=== PATIENT | female | born 1965 | race Caucasian/White ===

== ENCOUNTER 2018-01-27 08:26 | Day surgery (SDC) | payer MEDICARE ==
[2018-01-26 08:50] VITALS: BMI 33.6
[2018-01-27 11:29] VITALS: TEMP 98.7
[2018-01-27 12:57] VITALS: BP 128/85; PULSE 86
== END 2018-01-27 12:10 | disposition home or self-care (01) ==
LOC: JASU-ENDO 08:26
PROVIDERS: ATTEND Internal Medicine Gastroenterology
PROC: 0DJD8ZZ Inspection of Lower Intestinal Tract, Via Natural or Artificial Opening Endoscopic (ICD-10-PCS; principal; 2018-01-27 10:45)
DX: Z12.11 Encounter for screening for malignant neoplasm of colon (principal); K64.8 Other hemorrhoids; K57.30 Diverticulosis of large intestine without perforation or abscess without bleeding
CPT/HCPCS: 84703

== ENCOUNTER → 2018-02-19 | Day surgery (SDC) | payer MEDICARE ==
--- NOTE | 2018-02-20 15:56 | PATH ---
Surgical Pathology Report Patient Name: LAURA JUSTIN [facility]. Rec. #: [id number] /Age/Gender: 1965 (Age: 52) / F Account: [id number] Location: [facility] Taken: 02/19/2018 Received: 02/19/2018 Reported: 02/20/2018 Physicians: Fortino Reid M.D. Specimen(s) Received A: RIGHT BREAST SPECIMEN SITE 1 WITH DENSITY B: RIGHT BREAST SPECIMEN SITE 2 WITH CALCIFICATIONS C: RIGHT BREAST SPECIMEN WITHOUT CALCIFICATIONS Clinical History Nonpalpable lesion, highly suspicious Mammographic findings: Microcalcification, suspicious Final Diagnosis A. RIGHT BREAST SPECIMEN, SITE 1, WITH DENSITY, STEREOTACTIC BIOPSY: INVASIVE DUCTAL CARCINOMA, WELL DIFFERENTIATED, MEASURES UP TO 0.9 CM IN LENGTH MEASURED ON THIS SLIDE. DUCTAL CARCINOMA IN SITU (DCIS), LOW NUCLEAR GRADE, CRIBRIFORM TYPE. LOBULAR CARCINOMA IN SITU (LCIS), CLASSICAL TYPE. Results of estrogen receptor (ER) and progesterone receptor (DC) studies for invasive carcinoma performed on block "A1" at [facility] are as follows: ER (clone [id number] mouse monoclonal antibody by [employer]): 100% nuclear staining with strong intensity (Positive). DC (clone16 mouse monoclonal antibody by [employer]): 100% nuclear staining with strong intensity (Positive). Positive and negative controls (internal if applicable) show appropriate results. Formalin fixation and cold ischemic times are within current ASCO/CAP recommendations for ER, DC and Her2 testing. Reports for Her 2 and Ki-67 to follow. B. RIGHT BREAST SPECIMEN, SITE 2, WITH CALCIFICATIONS, STEREOTACTIC BIOPSY: LOBULAR CARCINOMA IN SITU (LCIS), CLASSICAL TYPE. USUAL DUCTAL HYPERPLASIA AND COLUMNAR CELL CHANGE NOTED. MICROCALCIFICATIONS PRESENT IN LCIS AND BENIGN BREAST TISSUE. Results of estrogen receptor (ER) and progesterone receptor (DC) studies performed on block "B1" at [facility] are as follows: ER (clone [id number] mouse monoclonal antibody by [employer]): 100% nuclear staining with strong intensity (Positive). DC (clone16 mouse monoclonal antibody by Leica): 100% nuclear staining with strong intensity (Positive). C. RIGHT BREAST SPECIMEN, SITE 2, WITHOUT CALCIFICATIONS, STEREOTACTIC BIOPSY: LOBULAR CARCINOMA IN SITU (LCIS), CLASSICAL TYPE. USUAL DUCTAL HYPERPLASIA AND COLUMNAR CELL CHANGE NOTED. MICROCALCIFICATIONS PRESENT IN LCIS AND BENIGN BREAST TISSUE. Comment: Immunohistochemical stains performed and interpreted at [facility] show the following results: smooth muscle myosin heavy chain and p63 (done on block A1) show loss of the myoepithelial cell layer in the areas of invasive carcinoma. E-cadherin (done on blocks A1, B1, and C1) highlights the tumor cells in the ductal carcinoma component, while is negative in the lobular carcinoma in situ. Electronically Signed Светлана Mackay M.D. Addendum Reported: 02/23/2018 Addendum Diagnosis Results of Her2 (IHC) & Ki-67 studies performed on block "A1 " at [place], [place] ([id number]) are as follows: Her2 IHC (EP3 from [employer], formerly known as [id number], using [employer] Polymer Refine detection kit): 0 (Negative). Ki-67: ~10% (Low proliferative index). Positive and negative controls (internal if applicable) show appropriate results. Seda Polo M.D. Gross Description A. Received in formalin labeled "right breast with density site 1," are 8 adkins-yellow, cylindrical portions of fibroadipose tissue ranging from 1.0-3.2 cm in length and averaging 0.3 cm in diameter. The specimens are submitted in toto in 2 cassettes. B. Received in formalin labeled "right breast with calcifications site 2," are 3 adkins-yellow, cylindrical portions of fibroadipose tissue ranging from 2.7-3.3 cm in length and averaging 0.3 cm in diameter. The specimens are submitted in toto in one cassette. C. Received in formalin labeled "right breast without calcifications," are 4 adkins-yellow, cylindrical portions of fibroadipose tissue ranging from 1.5-3.1 cm in length and averaging 0.3 cm in diameter. The specimens are submitted in toto in one cassette. Time to formalin fixation: 5 minutes Total formalin fixation time: Approximately 6 hours. 02/19/2018 saudi02/19/2018
== END | disposition home or self-care (01) ==
LOC: FMAMMOTONE 09:55
PROVIDERS: ATTEND Physician Assistant
PROC: 0HBT3ZX Excision of Right Breast, Percutaneous Approach, Diagnostic (ICD-10-PCS; principal; 2018-02-19)
DX: C50.811 Malignant neoplasm of overlapping sites of right female breast (principal); Z17.0 Estrogen receptor positive status [ER+]; D05.01 Lobular carcinoma in situ of right breast; D05.11 Intraductal carcinoma in situ of right breast; R92.1 Mammographic calcification found on diagnostic imaging of breast
CPT/HCPCS: 19081; 19082; 87899; 88305-TC; A4648

== ENCOUNTER → 2018-03-13 | Day surgery (SDC) | payer MEDICARE ==
--- NOTE | 2018-03-16 14:07 | PATH ---
Surgical Pathology Report Patient Name: LAURA JUSTIN [facility]. Rec. #: [id number] /Age/Gender: 1965 (Age: 52) / F Account: [id number] Location: [facility] RADIOLOGY U Taken: 03/13/2018 Received: 03/13/2018 Reported: 03/16/2018 Physicians: Babatunde Rodriguez M.D. Specimen(s) Received RIGHT AXILLA CORE BIOPSY Clinical History Ultrasound findings: Suspicious Newly diagnosed right breast cancer, suspicious right axillary lymph node Final Diagnosis AXILLA, RIGHT, CORE BIOPSY: BENIGN LYMPH NODE TISSUE. NO EVIDENCE OF METASTATIC CARCINOMA. (SEE NOTE) Note: Cytokeratin (AE1/3) immunostain (performed [facility]) is negative. This finding supports the diagnosis. Electronically Signed Laura Smith M.D. Gross Description Received in formalin labeled "right axilla biopsy," is a 2.0 x 1.6 x 0.2 cm aggregate of adkins-yellow, irregular to cylindrical portions of fibroadipose tissue. The formalin is filtered and the specimen is entirely submitted in one cassette. Time to formalin fixation: 2 minutes Total formalin fixation time: Approximately 7 hours. 03/13/201803/13/2018
== END | disposition home or self-care (01) ==
LOC: FRADUS-SUR 09:47
PROVIDERS: ATTEND Surgery Surgical Oncology
PROC: 07B53ZX Excision of Right Axillary Lymphatic, Percutaneous Approach, Diagnostic (ICD-10-PCS; principal; 2018-03-13)
PROC: BH47ZZZ Ultrasonography of Upper Extremity (ICD-10-PCS; 2018-03-13)
DX: C50.911 Malignant neoplasm of unspecified site of right female breast (principal); R59.9 Enlarged lymph nodes, unspecified
CPT/HCPCS: 19083; 87899; 88305-TC; 88342-TC; A4648

== ENCOUNTER 2018-04-14 06:28 | Day surgery (SDC) | payer MEDICARE ==
[2018-04-06 12:14] VITALS: BMI 32.9
--- NOTE | 2018-04-10 11:01 | HP ---
Admitting History and Physical - Primary Care Physician PCP: Cinthya Santa - Admission Chief Complaint: right breast cancer History of Present Illness: 52 year old postmenapausal female with mammogram 12/2017 showing focal mass right breast @ 11:00 diagnostics follow up mammogram and US showed spiculated mass right breast 12:00 measuring 6mm 5 to6 cm FN. as well as extensive calcifications extending retroareolar region at 12:00. Birad 4. Stereotactic core x2 areas showed sire one invasive lobular carcinoma and DCIS ER+/CT+/HER2 - . Site 2 LCIS . MRI showed newly diagnosed right breast cancer and suspicious right axillary node which was biopsied and negative . BRCA 2 VUS. History Source: Patient - Past Medical History Cardiovascular: Yes: Hyperlipdemia ...LMP: 07/03/17 Psych: Yes: Bipolar, Depression - Past Surgical History Past Surgical History: Yes: Appendectomy Additional Past Surgical History: eye surgery child - Smoking History Smoking history: Never smoked Have you smoked in the past 12 months: No - Alcohol/Substance Use Hx Alcohol Use: No - Social History ADL: Independent History of Recent Travel: No Home Medications - Allergies Allergies/Adverse Reactions: Allergies Allergy/AdvReac Type Severity Reaction Status Date / Time No Known Allergies Allergy Verified 03/05/15 09:59 - Home Medications Home Medications: Ambulatory Orders Clozapine 100 mg PO TID 03/05/15 Ergocalciferol (Vitamin D2) [Vitamin D2] 50,000 unit PO ASDIR 01/26/18 Simvastatin 40 mg PO HS 01/27/18 Family Disease History - Family Disease History Other Family History: mat aunts x 2 breast ca one at age 67, ? age. mat cousin breast ca 50 Physical Examination Constitutional: Yes: No Distress Breast(s): Yes: Other (Right breast thickening right 12:00 due to post bx changes no palpable axillary node.) Problem List - Problems (1) Breast cancer, right breast Code(s): C50.911 - MALIGNANT NEOPLASM OF UNSP SITE OF RIGHT FEMALE BREAST Qualifiers: Breast location: overlapping sites of breast Estrogen receptor status: positive Patient sex: female Qualified Code(s): C50.811 - Malignant neoplasm of overlapping sites of right female breast; Z17.0 - Estrogen receptor positive status [ER+] Assessment/Plan Right breast wide excision, right sentenel node biopsy , possible axillary node dissection,right mammogram needle localization , right lymphoscintogram, bilateral reduction mastopexy with Vázquez
[2018-04-14] MEDS ORDERED: LIDOCAINE 1%/EPI 1:100000 (20 ML MULTI DOSE VIAL) ONE (11:13)
[2018-04-14] MEDS ORDERED: BUPIVACAINE HCL/PF 2.5 MG/ML - 30 ML VIAL IJ ONE (11:13)
[2018-04-14] MEDS ORDERED: ISOSULFAN BLUE 10 MG/ML VIAL SQ ONE (11:14)
[2018-04-14] MEDS ORDERED: KETOROLAC TROMETHAMINE 30 MG/1 ML VIAL IVPUSH PRN (14:30)
[2018-04-14] MEDS ORDERED: DEXTROSE 5%-0.45% SALINE 1,000 ML IV SCH ×2 (14:30→19:10)
[2018-04-14] MEDS ORDERED: ONDANSETRON 4 MG/2 ML VIAL IVPUSH PRN (14:30)
[2018-04-14] MEDS ORDERED: oxyCODONE HCL 5 MG TABLET PO PRN ×2 (15:19→17:26)
[2018-04-14] MEDS ORDERED: LACTATED RINGERS SOLUTION 1,000 ML IV SCH (15:30)
--- NOTE | 2018-04-14 17:39 | OP ---
Operative Note - Note: Operative Date: 04/14/18 Pre-Operative Diagnosis: right breast cancer Operation: right breast recnostruction wtih left breast reduction Post-Operative Diagnosis: Same as Pre-op Surgeon: Lupillo Vázquez Dog Walker: Francesca Owens Anesthesia: General Drains & Tubes with Location: KIKE x 2 breasts Operative Report Dictated: Yes
[2018-04-14] MEDS ORDERED: ONDANSETRON 4 MG/2 ML VIAL ONE (18:17)
--- NOTE | 2018-04-14 18:34 | OP ---
DATE OF OPERATION: 04/14/2018 PROCEDURE: Right-sided breast reconstruction of partial mastectomy defect using parenchymal rearrangement inferior pedicle flap reconstruction and left-sided balancing breast reduction. A 4-cm complex right axillary wound closure. In combination with a right-sided partial mastectomy and sentinel lymph node biopsy performed by Dr. Cinthya Santa and his team, that portion of the procedure will be dictated separately by Dr. Santa and his team. ATTENDING SURGEON: Lupillo Vázquez MD ANESTHESIA: General endotracheal anesthesia. DECONTAMINATOR: CLIVE Ritchie PREOPERATIVE DIAGNOSIS: Right-sided breast cancer, asymmetry of right-sided reconstructed breast. POSTOPERATIVE DIAGNOSIS: Right-sided breast cancer, asymmetry of right-sided reconstructed breast. DESCRIPTION OF PROCEDURE: The patient is marked in the holding area for an inverted T-rodriguez-type pattern reduction with a similar pattern for reconstruction on the right. Nipples are sighted at 22 cm from the sternal notch bilaterally. Patient is awake and aware of all incisions and resulting scars, understands, and agrees to proceed. Brought to the operating room. Sequential compression stockings and EVONNE hose were applied. Blair catheter was placed. She was prepped and draped in the standard surgical fashion after anesthesia was given. A timeout was called. The patient, procedure, site, and side were verified. At this point, while the right-sided partial mastectomy is being performed, the left-sided reduction is planned. An 8-cm width inferior pedicle is marked. The nipple was traced with a 42-mm cookie cutter and with the breast under tourniquet, the pedicle is deepithelialized with the exception of the nipple-areolar complex. Superior, medial, and lateral skin flaps are developed at 2 cm of thickness down to the level of the chest wall. Volume is removed between the skin flaps and the inferior pedicle. Hemostasis was meticulously achieved. The skin was tailor tacked and attention was then directed towards the right side after the completion of the partial mastectomy. The partial mastectomy defect is assessed. Clips are placed to outline the [place] defect, which is not significantly repositioned through the reconstruction. Hemostasis was meticulously achieved. It is determined that the resection did not compromise the inferior pedicle blood supply to the nipple areolar complex. Therefore, a pedicle was marked again with 8 cm of width and this was deepithelialized with the exception of the nipple areolar complex. A 42-mm cookie cutter was used to trace the nipple areola. The defect was then connected to skin flaps medially and laterally. The defect itself is the skin flap superiorly down to the chest wall. A minimal amount of breast tissue was removed; however, it is oriented as the inferomedial, inferolateral, and skin from the new anterior margin of the defect, which is at the 12 o'clock position from the nipple is removed. The inferior pedicle supporting the nipple areola is mobilized into the central mound of the breast and the skin is tailor tacked. The patient is brought to a seated-upright position where it is determined that the size, shape, and symmetry of the breasts are comparable. Size 10 flat KIKE drains were brought out through the lateral extent of the incision and secured with 3-0 silk drain sutures. The inverted T points were closed with a half-buried mattress 2-0 nylon suture. The nipples were pink and viable with good periareolar dermal bleeding. The closure was performed with a series of interrupted buried deep dermal 3-0 Monocryl suture along the vertical and horizontal limbs and a running subcuticular 3-0 Monocryl suture along the vertical and horizontal limbs. The nipple areola was inset with a series of interrupted buried deep dermal 3-0 Monocryl suture in the denton-hole pattern with a running subcuticular 4-0 Monocryl around the areolas. Attention was then directed towards the right axillary wound where the axillary fascia was closed with a series of interrupted 3-0 Monocryl suture. After hemostasis was achieved, the dermis was closed with a series of interrupted buried deep dermal 3-0 Monocryl suture followed by a running subcuticular 3-0 Monocryl suture. All incisions were dressed with half-inch Steri-Strips. ABD gauze and a surgical bra were applied. Patient was awoken from anesthesia, having tolerated the procedure well, transferred to the recovery room without complication. Babatunde [id number]
--- NOTE | 2018-04-14 18:49 | OP ---
DATE OF OPERATION: 04/14/2018 PREOPERATIVE DIAGNOSIS: Right breast cancer. POSTOPERATIVE DIAGNOSIS: Right breast cancer. PROCEDURE: Right breast wide excision with sentinel node biopsy. ANESTHESIA: General intubated. ATTENDING SURGEON: Satish Santa MD REGISTERED REPRESENTATIVE: CLIVE Amin ESTIMATED BLOOD LOSS: Minimal. COMPLICATIONS: None. PROCEDURE: Patient was made aware of the risks and benefits of the procedure and consented. She was placed in the supine position after going to the radiology suite where 4 needles and wires were placed next to the index lesions and surrounding calcifications. She was then brought to Nuclear Medicine where radioactive tracer was injected into her breast for lymphoscintigraphy. She then was placed in the supine position on the operating table. After general anesthesia was induced, the patient was intubated. Then, 3.0 mL of 1% isosulfan blue were locally infiltrated into the peritumoral tissues. The operative site was prepped and draped in the usual sterile fashion. Waiting approximately 10 minutes with gentle manual compression, curvilinear incision was made in the right axilla. With blunt and sharp dissection, tissues were dissected down to the axillary fat where cluster blue and hot lymph nodes were identified and surgically excised and submitted to Pathology. Irrigation of the rest of the axilla with palpation and with the needle probe found no other hot spots or suspicious areas. The right breast was then approached. A circumareolar incision was made superiorly using electrocautery. Thick skin flaps were made to each of the wires, which each of the needles. The needles were withdrawn through the puncture sites and the wires through the wound. Tissues around the wire were then sharply excised and submitted with a short suture superior and long suture lateral. Specimen radiograph confirmed the presence of the index lesion seen as 2 clips as well as adjacent calcifications. Interrogation of the rest of the wound revealed that there was some suspicious thickening inferior, so an additional sharply excised inferior segment was taken with a clip in the new inferior margin as well as deep and anterior segments were clipped at the new margin. The deep segment went all of the way down to the pectoralis muscle and anterior was against the subcutaneous fat. The procedure was then turned over to Dr. Lupillo Vázquez, who did a bilateral mastopexy reconstruction. He will dictate his portion of the procedure later. SATISH SANTA M.D. [id number]
[2018-04-14] MEDS ORDERED: METOCLOPRAMIDE HCL INJECTION 10 MG/2 ML VIAL ONE (19:04)
[2018-04-14] MEDS ORDERED: morphine CARPU-JECT 2 MG/1 ML DISP.SYRIN IVPUSH PRN (19:10)
[2018-04-14] MEDS ORDERED: PT OWN MED DRAWER 7, Y5N ONE (21:42)
[2018-04-14] MEDS ORDERED: CLOZAPINE 100 MG PO SCH (22:00)
[2018-04-15 06:21] VITALS: BP 100/59; PULSE 93; TEMP 98.9
--- NOTE | 2018-04-15 13:14 | PN ---
Progress Note, Physician Chief Complaint: Right breast cancer S/P right breast wide excision sentenel node biopsy and reduction mastopexy bilaterally POD #1 History of Present Illness: Patient is OOB pain minimal no medication taken ,ready for discharge today - Current Medication List Current Medications: Active Medications Dextrose/Sodium Chloride (D5-1/2ns -) 1,000 mls @ 75 mls/hr IV ASDIR [place] Ketorolac Tromethamine (Toradol Injection -) 30 mg IVPUSH ONCE PRN PRN Reason: PAIN Stop: 04/19/18 14:29 Morphine Sulfate (Morphine Injection -) 2 mg IVPUSH Q6H PRN PRN Reason: PAIN LEVEL 6-10 Non-Formulary Medication (Clozapine [Clozapine]) 100 mg PO TID A[place] Ondansetron HCl (Zofran Injection) 4 mg IVPUSH Q6H PRN PRN Reason: NAUSEA AND/OR VOMITING Last Admin: 04/14/18 18:20 Dose: 4 mg Oxycodone HCl (Roxicodone -) 5 mg PO Q4H PRN PRN Reason: PAIN LEVEL 1-5 - Objective Vital Signs: Vital Signs Temperature 98.9 F 04/15/18 06:18 Pulse Rate 93 H 04/15/18 06:18 Respiratory Rate 19 04/15/18 06:18 Blood Pressure 100/59 L 04/15/18 06:18 O2 Sat by Pulse Oximetry (%) 95 04/15/18 06:18 Constitutional: Yes: No Distress Breast(s): Yes: Other (Bilateral flaps viable incision intact KIKE drains fuctioning steristrips in place. dresing changed) Problem List - Problems (1) Breast cancer, right breast Code(s): C50.911 - MALIGNANT NEOPLASM OF UNSP SITE OF RIGHT FEMALE BREAST Qualifiers: Breast location: overlapping sites of breast Estrogen receptor status: positive Patient sex: female Qualified Code(s): C50.811 - Malignant neoplasm of overlapping sites of right female breast; Z17.0 - Estrogen receptor positive status [ER+] Assessment/Plan discharge home today KIKE drain training follow up next week with Dr goddard and Dr Vázquez cefadroxil BID for 10 days or until drains are dc'd tylenol or tramdol prn
--- NOTE | 2018-04-17 15:26 | PATH ---
Surgical Pathology Report Patient Name: LAURA JUSTIN [facility]. Rec. #: [id number] /Age/Gender: 1965 (Age: 53) / F Account: [id number] Location: [facility] Taken: 04/14/2018 Received: 04/14/2018 Reported: 04/17/2018 Physicians: Cinthya Santa M.D. Specimen(s) Received A: RIGHT AXILLARY SENTINEL NODE B: RIGHT BREAST WIDE EXCISION C: RIGHT BREAST INFERIOR SEGMENT D: RIGHT BREAST DEEP SEGMENT E: RIGHT BREAST ANTERIOR SEGMENT F: LEFT BREAST REDUCTION G: RIGHT BREAST ADDITIONAL ANTERIOR MARGIN H: RIGHT BREAST SKIN I: RIGHJT BREAST MEDIAL LATERAL J: RIGHT BREAST INFERIOR LATERAL K: LEFT BREAST TISSUE Clinical History Right breast CA Final Diagnosis A. LYMPH NODE, RIGHT AXILLARY SENTINEL, EXCISION: FIVE LYMPH NODES, NEGATIVE FOR METASTATIC CARCINOMA (0/5). Comment: One lymph node shows prior biopsy site changes. B. BREAST, RIGHT, WIDE EXCISION: INVASIVE DUCTAL CARCINOMA, WELL DIFFERENTIATED (TUBULE SCORE: 1/3, NUCLEAR GRADE: 2/3, MITOTIC SCORE: 1/3, TOTAL SCORE: 4/9; LIAN GRADE 1). INVASIVE CARCINOMA MEASURES 1.1 CM IN GREATEST DIMENSION, MICROSCOPICALLY. DUCTAL CARCINOMA IN SITU (DCIS), CRIBRIFORM TYPE WITH ASSOCIATED CALCIFICATIONS IS PRESENT ADMIXED WITH INVASIVE CARCINOMA. LOBULAR CARCINOMA IN SITU (LCIS) CLASSICAL TYPE, FLAT EPITHELIAL ATYPIA (FEA) AND COLUMNAR CELL CHANGE WITH ASSOCIATED CALCIFICATIONS. NO LYMPHOVASCULAR INVASION IS IDENTIFIED. PRIOR BIOPSY SITE CHANGES ARE PRESENT. PATHOLOGIC STAGE (pTNM): pT1c pN0. SEE ALSO INVASIVE CARCINOMA CASE SUMMARY BELOW. C. BREAST, RIGHT, INFERIOR SEGMENT, EXCISION: FEW FOCI OF LCIS, CLASSICAL TYPE. D. BREAST, RIGHT, DEEP SEGMENT, EXCISION: BENIGN FIBROADIPOSE TISSUE. E. BREAST, RIGHT, ANTERIOR SEGMENT, EXCISION: LCIS, CLASSICAL TYPE AND COLUMNAR CELL CHANGE WITH ASSOCIATED CALCIFICATIONS. F. BREAST, LEFT, REDUCTION: BENIGN BREAST TISSUE. SKIN WITH NO PATHOLOGIC FINDINGS. G. BREAST, RIGHT, ADDITIONAL ANTERIOR MARGIN, EXCISION: FEW FOCI OF LCIS, CLASSICAL TYPE. SKIN, WITH NO PATHOLOGIC FINDINGS. H. SKIN, RIGHT BREAST, EXCISION: SKIN WITH NO PATHOLOGIC FINDINGS. I. BREAST, RIGHT, MEDIAL LATERAL, EXCISION: SKIN AND UNDERLYING FIBROADIPOSE TISSUE WITH NO PATHOLOGIC FINDINGS. J. BREAST, RIGHT, INFERIOR LATERAL, EXCISION: BENIGN BREAST TISSUE. SKIN WITH NO PATHOLOGIC FINDINGS. K. BREAST TISSUE, LEFT, EXCISION: BREAST TISSUE SHOWING FOCAL ATYPICAL DUCTAL HYPERPLASIA (ADH) AND FIBROCYSTIC CHANGES. Comments Breast Invasive Carcinoma: Surgical Pathology Case Summary (Based on AJCC TNM 8 th edition) Procedure _X_ Excision (less than total mastectomy) Specimen Laterality _X_ Right Tumor Size _X_ Greatest dimension of largest invasive focus >1 mm (millimeters): 11 mm Histologic Type _X_ Invasive carcinoma of no special type (ductal, not otherwise specified) Histologic Grade (Lian Histologic Score) Glandular (Acinar)/Tubular Differentiation _X_ Score 1 (>75% of tumor area forming glandular/tubular structures) Nuclear Pleomorphism _X_ Score 2 Mitotic Rate _X_ Score 1 Overall Grade _X_ Grade 1 (scores of 3, 4, or 5) Tumor Focality _X_ Single focus of invasive carcinoma Ductal Carcinoma In Situ (DCIS) _X_ DCIS is present in specimen _X_ Negative for extensive intraductal component (EIC) Margins Invasive Carcinoma Margins _X_ Uninvolved by invasive carcinoma Distance from closest margin (millimeters): 10 mm from anterior margin in wide excision B; final anterior margins E&G are negative for carcinoma DCIS Margins _X_ Uninvolved by DCIS Distance from closest margin (millimeters): 11 mm from anterior margin in wide excision B; final anterior margins E&G are negative for DCIS Regional Lymph Nodes Number of Lymph Nodes with Macrometastases (>2 mm): 0 Number of Lymph Nodes with Micrometastases (>0.2 mm to 2 mm and/or >200 cells): 0 Number of Lymph Nodes with Isolated Tumor Cells (=0.2 mm and =200 cells): 0 Number of Lymph Nodes Examined: 5 Number of [place] Nodes Examined : 5 Treatment Effect _X_ No known presurgical therapy Lymphovascular Invasion _X_ Not identified Pathologic Stage Classification (pTNM, AJCC 8th Edition) TNM Descriptors (required only if applicable) Primary Tumor (Invasive Carcinoma) (pT) _X_ pT1c: Tumor >10 mm but =20 mm in greatest dimension Regional Lymph Nodes (pN) Category (pN) _X_ pN0 (sn): No regional lymph node metastasis identified or ITCs only Biomarker Studies Results of ER and IN studies performed on prior biopsy ([id number]) at [facility] are as follows: ER (clone [id number] mouse monoclonal antibody by [employer]): 100 % nuclear staining with strong intensity (Positive). IN (clone16 mouse monoclonal antibody by [employer]) : 100 % nuclear staining with strong intensity (Positive). Results of Her2 (IHC) & Ki-67 studies performed on prior biopsy ([id number]) at [place], [place] ([id number]) are as follows: Her2 IHC (EP3 from [employer], formerly known as [id number], using [employer] Polymer Refine detection kit): 0 (Negative). Ki67: ~10% (low proliferative index). Electronically Signed Laura Smith M.D. Gross Description A. Received in formalin labeled "right axillary sentinel node," are 5 adkins lymph nodes with attached fat ranging from 0.7-2.0 cm in greatest dimension. The specimens are entirely submitted in 5 cassettes as follows: 1-two whole lymph nodes; 2-3-one bisected lymph node each; 4-5-one bisected lymph node. B. Received in formalin, labeled "right breast wide excision," is a 7.0 x 5.9 x 3.7 cm. adkins-yellow, irregular, portion of fibroadipose tissue with 4 needle localization wires present. There is a short suture marking the superior aspect and a long suture marking the lateral aspect, per the surgeon. There is no skin present. The specimen is inked as follows: superior and lateral blue; inferior green; medial yellow; anterior red; deep black. The specimen is serially sectioned from superior to inferior. Sectioning reveals a hemorrhagic previous biopsy site containing a ochoa metallic clip. The biopsy site is 0.7 cm from the anterior margin. There is a 0.8 x 0.7 x 0.7 cm indurated mass present. The mass is 0.8 cm from the anterior soft tissue margin and 1.0 cm from the lateral margin. The mass is 1.2 cm from the first hemorrhagic biopsy site. Sign Builder Supervisor sections are submitted in 14 cassettes as follows: [id number] biopsy site with clip (with anterior margin); 4-7-mass (each with anterior and lateral margins); 8-deep margin from area of mass; 9-medial margin; 10-superior margin; 11-inferior margin; [id number] fibrous tissue with deep margin. Time to formalin fixation: Not given Total formalin fixation time: Approximately 24 hours C. Received in formalin labeled "right breast inferior segment," is a 4.0 x 3.3 x 1.4 cm portion of fibroadipose tissue with a clip marking the new margin, per the surgeon. The new margin is inked black and the specimen is serially sectioned. The specimen is entirely and sequentially submitted in 7 cassettes. D. Received in formalin labeled "right breast deep margin," is a 4.3 x 3.4 x 1.8 cm portion of fibroadipose tissue with a clip marking the new margin, per the surgeon. The new margin is inked black and the specimen is serially sectioned. The specimen is entirely and sequentially submitted in 9 cassettes. E. Received in formalin labeled "right breast anterior segment," is a 2.5 x 1.6 x 0.3 cm portion of fibroadipose tissue with a clip marking the new margin, per the surgeon. The new margin is inked black and the specimen is serially sectioned. The specimen is entirely and sequentially submitted in 3 cassettes. F. Received in formalin labeled "left breast reduction," is a 262 g, 14.5 x 12.0 x 5.0 cm aggregate of multiple unoriented portions of fibroadipose tissue and adkins, unremarkable skin. Sectioning reveals multifocal dense white fibrous tissue. Sign Builder Supervisor sections are submitted in 5 cassettes. G. Received in formalin labeled "right breast additional anterior margin," is a 4.7 x 1.9 cm adkins, irregular portion of skin excised to a depth of 1.2 cm. The epidermal surface is unremarkable. Sectioning reveals foci of firm fibrous tissue. Sign Builder Supervisor sections are submitted in 5 cassettes. H. Received in formalin labeled "right breast skin," is a 7.0 x 2.5 x 0.2 cm aggregate of multiple irregular, unoriented portions of skin. No discrete epidermal lesions are identified. Sign Builder Supervisor sections are submitted in one cassette. I. Received in formalin labeled "right breast medial lateral," is a 4.0 x 2.6 cm adkins, irregular portion of skin excised to depth of 0.9 cm. The epidermal surface is unremarkable. Sectioning reveals unremarkable fibroadipose tissue. Sign Builder Supervisor sections are submitted in one cassette. J. Received in formalin labeled "right breast inferior lateral," is an 8.0 x 2.0 cm adkins, irregular, unoriented portion of skin excised to depth of 4.5 cm. The epidermal surface is unremarkable. Sectioning reveals unremarkable fibroadipose tissue. Sign Builder Supervisor sections are submitted in 2 cassettes. K. Received in formalin labeled "left breast tissue," is a 70 g, 9.0 x 8.5 x 2.5 cm aggregate of multiple unoriented portions of fibroadipose tissue. There is no skin present. Sectioning reveals multifocal dense white fibrous tissue. Sign Builder Supervisor sections are submitted in 3 cassettes. 04/15/2018 [facility]04/15/2018
== END 2018-04-15 13:35 | disposition home or self-care (01) ==
LOC: FASU 06:28 → FM/S 20:50 → FASU 04-15 13:35
PROVIDERS: ATTEND Surgery Surgical Oncology
PROC: 0HBT0ZZ Excision of Right Breast, Open Approach (ICD-10-PCS; principal; 2018-04-14 13:25)
PROC: 0HRT07Z Replacement of Right Breast with Autologous Tissue Substitute, Open Approach (ICD-10-PCS; 2018-04-14 13:25)
PROC: 0HBU0ZZ Excision of Left Breast, Open Approach (ICD-10-PCS; 2018-04-14 13:25)
DX: C50.811 Malignant neoplasm of overlapping sites of right female breast (principal); Z17.0 Estrogen receptor positive status [ER+]; D05.11 Intraductal carcinoma in situ of right breast; E78.5 Hyperlipidemia, unspecified; N60.91 Unspecified benign mammary dysplasia of right breast; N65.1 Disproportion of reconstructed breast
CPT/HCPCS: 19281; 19282; 36415; 78195-TC; 84703; 88305-TC; 88307-TC; 94760; A9541

== ENCOUNTER 2018-05-24 16:00 | Emergency (ER) | payer OTHER ==
--- NOTE | 2018-05-24 16:16 | PDOC ---
History of Present Illness - General Chief Complaint: Pain Stated Complaint: RT BREAST PAIN Time Seen by Provider: 05/24/18 16:16 - History of Present Illness Initial Comments: 53 year old female with history of bipolar disorder and recent episode of severe depression presenting status post right breast surgery (04/14/18)with a wound under her right breast at the surgery site. States that she was hospitalized for a severe episode of depression and had some breast pain last week without trauma. She noticed that the wound was draining some fluid and was tender over the past few days. Denies fevers, chills, nausea, vomiting, or other symptoms. 05/24/18 17:35 Past History - Past Medical History Allergies/Adverse Reactions: Allergies Allergy/AdvReac Type Severity Reaction Status Date / Time No Known Allergies Allergy Verified 05/24/18 16:11 Home Medications: Ambulatory Orders Clozapine 400 mg PO HS 03/05/15 Ergocalciferol (Vitamin D2) [Vitamin D2] 1.25 mg PO Q7D 01/26/18 Simvastatin 40 mg PO HS 01/27/18 Divalproex *ER* [Depakote *ER* -] 1,000 mg PO HS 05/24/18 Fenofibrate Nanocrystallized [Fenofibrate] 48 mg PO AM 05/24/18 Anemia: No Asthma: No Cancer: No Cardiac Disorders: No CVA: No COPD: No CHF: No Dementia: No Diabetes: No GI Disorders: No Disorders: No HTN: No Hypercholesterolemia: Yes Liver Disease: No Psychiatric Problems: Yes (bipolar, depressive) Seizures: No Thyroid Disease: No - Surgical History Abdominal Surgery: No Appendectomy: Yes Cardiac Surgery: No Cholecystectomy: No Lung Surgery: No Neurologic Surgery: No Orthopedic Surgery: No - Suicide/Smoking/Psychosocial Hx Smoking History: Never smoked Have you smoked in the past 12 months: No Hx Alcohol Use: No Drug/Substance Use Hx: No Substance Use Type: None Hx Substance Use Treatment: No Review of Systems - Review of Systems Constitutional: No: Chills, Diaphoresis, Fever HEENTM: No: Eye Pain, Blurred Vision, Tearing Respiratory: No: Cough, Orthopnea, Shortness of Breath, Stridor Cardiac (ROS): No: Chest Pain, Irregular Heart Rate ABD/GI: No: Diarrhea, Nausea, Poor Appetite, Vomiting : No: Burning, Dysuria, Discharge Musculoskeletal: No: Muscle Pain, Muscle Weakness Integumentary: Yes: Lesions. No: Bruising, Erythema, Rash Neurological: No: Headache, Numbness, Paresthesia Psychiatric: Yes: Anxiety, Depression, Emotional Problems Hematologic/Lymphatic: No: Anemia, Blood Clots, Easy Bleeding *Physical Exam - Physical Exam General Appearance: Yes: Nourished, Appropriately Dressed. No: Apparent Distress HEENT: positive: EOMI, CARLO, Normal ENT Inspection, Normal Voice Neck: positive: Trachea midline, Normal Thyroid, Supple. negative: Tender, Rigid Respiratory/Chest: positive: Lungs Clear, Normal Breath Sounds. negative: Chest Tender, Respiratory Distress, Accessory Muscle Use Cardiovascular: positive: Regular Rhythm, Regular Rate Gastrointestinal/Abdominal: positive: Normal Bowel Sounds, Flat, Soft. negative : Tender Lymphatic: negative: Adenopathy, Tenderness Musculoskeletal: positive: Normal Inspection. negative: Decreased Range of Motion Extremity: positive: Normal Capillary Refill, Normal Inspection, Normal Range of Motion, Tender Integumentary: positive: Normal Color, Dry, Other (Wound dehiscene at the right inframamary fold with grranulation and mild fibrinous discharge. No stan-wound cellulitis or fluctuance.) Neurologic: positive: Fully Oriented, Alert, Normal Mood/Affect, Normal Response , Motor Strength 5/5 Medical Decision Making - Medical Decision Making 53 year odl female with right inframammary wound dehiscence s/p 1 month from breast reduction/ carcinoma removal. No systemic signs appreciated and VSS. Picture of wound was shared with the plastic surgeon Dr. Vázquez in a HIPPA complaint fashion. Dr. Vázquez believes that this is normal postoperative changes and he recommended Bactrian and gauze dressings + followup with him at the patient's scheduled appointment on Friday in 3 days. Patient understands instructions and will be DC'd with return precautions. 05/24/18 17:44 *DC/Admit/Observation/Transfer Diagnosis at time of Disposition: Wound dehiscence - Discharge Dispostion Disposition: HOME Condition at time of disposition: Improved Decision to Admit order: No - Referrals Referrals: Schuyler Yung MD [Primary Care Provider] - Lupillo Vázquez MD [Staff Physician] - - Patient Instructions Printed Discharge Instructions: DI for Wound Dehiscence Additional Instructions: Please use Bacitracin twice a day and put fresh gauze on the wound. Please use Tylenol or Motrin for the pain. Please attend your regular appointment on Friday with Dr. Vázquez. Please return to the ED if you notice worsening pain, worsening fevers, nausea, vomiting, or other symptoms. - Post Discharge Activity
[2018-05-24 16:18] VITALS: BP 129/80; PULSE 92; TEMP 98.3; BMI 34.5
--- NOTE | 2018-05-24 17:42 | PDOC ---
Attending Attestation - Resident Resident Name: GatitoIwonaadán - ED Attending Attestation I have performed the following: I have examined & evaluated the patient, The case was reviewed & discussed with the resident, I agree w/resident's findings & plan - HPI HPI: 05/24/18 17:36 53-year-old female with a history of right breast cancer and depression comes in for wound check after surgery for right breast cancer and bilateral breast reduction performed on 04/14/2018. Patient was hospitalized for depression at [facility]. She was recently released feeling much better, and now comes in for a wound check. She denies fever or chills. There is a small area of the wound that is open, with some yellow exudate. - Physicial Exam PE: 05/24/18 17:38 On examination, the left breast reduction with a T-type incision is healing well. The right breast reduction also has a T-type incision with a small area at the intersection of the T which is open. There is some pink granulation tissue, and some very slight localized erythema without fluctuance or induration or tenderness. There is no surrounding cellulitis. - Medical Decision Making 05/24/18 17:42 53-year-old female who is over 1 month status post bilateral breast reduction and right breast surgery. There is a small open area on the right breast incision. There is no signs of mastitis or significant cellulitis. Findings discussed with Dr. Richie Vázquez. Photograph of the wound was sent to Dr. Vázquez. These findings are to be expected postoperatively and do not represent a significant complication as per Dr. Vázquez. The wound was treated with bacitracin ointment and dry sterile gauze per the instructions. Patient has a follow-up appointment with Dr. Vázquez for further wound check already scheduled in 3 days on Friday. Wound care demonstrated and discussed with the patient. Patient is stable for discharge.
== END 2018-05-24 17:59 | disposition home or self-care (01) ==
LOC: FER 16:00
DX: T81.30XA Disruption of wound, unspecified, initial encounter (principal); F31.9 Bipolar disorder, unspecified; E78.00 Pure hypercholesterolemia, unspecified
CPT/HCPCS: 99283-25

== ENCOUNTER 2019-03-01 05:32 | Day surgery (SDC) | payer MEDICARE, OTHER ==
[2019-03-01] MEDS ORDERED: LIDOCAINE HCL 1%, 10 MG/ML (20ML VIAL) ID ONE (10:00)
[2019-03-01] MEDS ORDERED: GOSERELIN ACETATE 3.6 MG IMPLANT SYRINGE SQ ONE (10:00)
[2019-03-01 15:18] VITALS: BP 109/74; PULSE 111; TEMP 98
== END 2019-03-01 11:20 | disposition home or self-care (01) ==
LOC: JONCCHEMO 05:32 → J7W 10:42 → JONCCHEMO 11:20
PROVIDERS: ATTEND Internal Medicine Hematology & Oncology
DX: Z51.11 Encounter for antineoplastic chemotherapy (principal); C50.811 Malignant neoplasm of overlapping sites of right female breast; Z17.0 Estrogen receptor positive status [ER+]
CPT/HCPCS: 96402; J9202

== ENCOUNTER 2019-03-29 06:58 | Day surgery (SDC) | payer MEDICARE, OTHER ==
[2019-03-29 08:50] LABS: BASO % 0.5 % (0-2.0); EOS % 5.2 % (0-4.5); HEMATOCRIT 38.5 % (32.4-45.2); LYMPH % 32.3 % (8-40); MCH 31.5 pg (25.7-33.7); MCHC 33.6 g/dl (32.0-36.0); MEAN CELL VOLUME 93.7 fl (80-96); MONO % 4.9 % (3.8-10.2); NEUT % 57.1 % (42.8-82.8); PLATELET COUNT 250 K/MM3 (134-434); RBC 4.12 M/mm3 (3.60-5.2); RDW 14.1 % (11.6-15.6); WHITE BLOOD COUNT 6.9 K/mm3 (4.0-10.0)
[2019-03-29 09:17] LABS: ALBUMIN 3.4 g/dl (3.4-5.0); BILIRUBIN,TOTAL 0.3 mg/dL (0.2-1); BLOOD UREA NITROGEN 9.2 mg/dL (7-18); CALCIUM 8.8 mg/dL (8.5-10.1); CREATININE 1.1 mg/dL (0.55-1.3); MAGNESIUM 2.2 mg/dL (1.8-2.4); POTASSIUM 4.1 mmol/L (3.5-5.1); TOT PROT 7.3 g/dl (6.4-8.2)
[2019-03-29] MEDS ORDERED: GOSERELIN ACETATE 3.6 MG IMPLANT SYRINGE SQ ONE (10:00)
[2019-03-29] MEDS ORDERED: LIDOCAINE HCL 1%, 10 MG/ML (20ML VIAL) ID ONE (10:00)
[2019-03-29 15:58] VITALS: BP 129/79; PULSE 102; TEMP 97.4
[2019-03-30 03:08] LABS: FOLLICLE STIMULATING HORMONE 5.6 mIU/mL (.); LUTEINIZING HORMONE 2.6 mIU/mL (.)
== END 2019-03-29 11:35 | disposition home or self-care (01) ==
LOC: JONCCHEMO 06:58 → J7W 12:13
PROVIDERS: ATTEND Internal Medicine Hematology & Oncology
DX: Z51.11 Encounter for antineoplastic chemotherapy (principal); C50.811 Malignant neoplasm of overlapping sites of right female breast; Z17.0 Estrogen receptor positive status [ER+]; E78.00 Pure hypercholesterolemia, unspecified; F31.9 Bipolar disorder, unspecified
CPT/HCPCS: 36415; 80053; 82306; 82670; 83001; 83002; 83735; 85025; 96402; J9202

== ENCOUNTER 2019-04-26 07:07 | Day surgery (SDC) | payer MEDICARE, OTHER ==
[2019-04-26] MEDS ORDERED: LIDOCAINE HCL 1%, 10 MG/ML (20ML VIAL) ID ONE (10:00)
[2019-04-26] MEDS ORDERED: GOSERELIN ACETATE 3.6 MG IMPLANT SYRINGE SQ ONE (10:00)
[2019-04-26 12:36] LABS: BASO % 0.3 % (0-2.0); EOS % 3.1 % (0-4.5); HEMATOCRIT 40.5 % (32.4-45.2); HEMOGLOBIN 12.9 GM/dL (10.7-15.3); MCH 30.1 pg (25.7-33.7); MCHC 31.9 g/dl (32.0-36.0); MEAN CELL VOLUME 94.3 fl (80-96); MEAN PLT VOLUME 10.7 fl (7.5-11.1); MONO % 4.2 % (3.8-10.2); NEUT % 71.4 % (42.8-82.8); PLATELET COUNT 239 K/MM3 (134-434); RBC 4.29 M/mm3 (3.60-5.2); RDW 14.2 % (11.6-15.6); WHITE BLOOD COUNT 13.5 K/mm3 (4.0-10.0)
[2019-04-26 13:05] LABS: ALBUMIN 3.5 g/dl (3.4-5.0); BILIRUBIN,TOTAL 0.4 mg/dL (0.2-1); BLOOD UREA NITROGEN 11.2 mg/dL (7-18); CALCIUM 9.1 mg/dL (8.5-10.1); MAGNESIUM 2.2 mg/dL (1.8-2.4); POTASSIUM 3.8 mmol/L (3.5-5.1); TOT PROT 7.4 g/dl (6.4-8.2)
[2019-04-26 19:05] VITALS: BP 95/55; PULSE 98; TEMP 97.8
[2019-04-27 05:08] LABS: LUTEINIZING HORMONE 0.1 mIU/mL (.)
== END 2019-04-26 13:55 | disposition home or self-care (01) ==
LOC: JONCCHEMO 07:07 → J7W 13:19 → JONCCHEMO 13:55
PROVIDERS: ATTEND Internal Medicine Hematology & Oncology
DX: Z51.11 Encounter for antineoplastic chemotherapy (principal); C50.811 Malignant neoplasm of overlapping sites of right female breast
CPT/HCPCS: 36415; 80053; 82670; 83001; 83002; 83735; 85025; 96402; J9202

== ENCOUNTER 2019-05-25 07:44 | Day surgery (SDC) | payer MEDICARE, OTHER ==
[2019-05-25 09:50] LABS: BASO % 0.4 % (0-2.0); EOS % 3.1 % (0-4.5); HEMATOCRIT 39.2 % (32.4-45.2); LYMPH % 25.3 % (8-40); MCHC 33.1 g/dl (32.0-36.0); MEAN CELL VOLUME 93.7 fl (80-96); MEAN PLT VOLUME 10.4 fl (7.5-11.1); MONO % 5.5 % (3.8-10.2); NEUT % 65.7 % (42.8-82.8); PLATELET COUNT 227 K/MM3 (134-434); RBC 4.18 M/mm3 (3.60-5.2); RDW 14.7 % (11.6-15.6)
[2019-05-25] MEDS ORDERED: LIDOCAINE HCL 1%, 10 MG/ML (20ML VIAL) ID ONE (10:00)
[2019-05-25] MEDS ORDERED: GOSERELIN ACETATE 3.6 MG IMPLANT SYRINGE SQ ONE (10:00)
[2019-05-25 10:13] LABS: BLOOD UREA NITROGEN 8.1 mg/dL (7-18); CALCIUM 8.8 mg/dL (8.5-10.1); CREATININE 1.2 mg/dL (0.55-1.3); POTASSIUM 4.2 mmol/L (3.5-5.1)
[2019-05-25 10:17] LABS: ALBUMIN 3.5 g/dl (3.4-5.0); BILIRUBIN,DIRECT 0.1 mg/dL (0.0-0.2); BILIRUBIN,TOTAL 0.5 mg/dL (0.2-1); MAGNESIUM 2.2 mg/dL (1.8-2.4); TOT PROT 7.3 g/dl (6.4-8.2)
[2019-05-25 14:38] VITALS: BP 123/78; PULSE 97; TEMP 97.3
[2019-05-26 05:08] LABS: FOLLICLE STIMULATING HORMONE 5.2 mIU/mL (.); LUTEINIZING HORMONE 0.1 mIU/mL (.)
== END 2019-05-25 10:55 | disposition home or self-care (01) ==
LOC: JONCCHEMO 07:44 → J7W 10:42 → JONCCHEMO 10:55
PROVIDERS: ATTEND Internal Medicine Hematology & Oncology
DX: Z51.11 Encounter for antineoplastic chemotherapy (principal); C50.311 Malignant neoplasm of lower-inner quadrant of right female breast; Z17.0 Estrogen receptor positive status [ER+]
CPT/HCPCS: 36415; 80048; 80076; 82306; 82670; 83001; 83002; 83735; 85025; 96402; J9202

== ENCOUNTER 2019-06-22 05:38 | Day surgery (SDC) | payer MEDICARE, OTHER ==
[2019-06-22 09:10] LABS: BASO % 0.6 % (0-2.0); EOS % 4.8 % (0-4.5); HEMATOCRIT 39.4 % (32.4-45.2); HEMOGLOBIN 13.1 GM/dL (10.7-15.3); LYMPH % 27.9 % (8-40); MCH 31.3 pg (25.7-33.7); MCHC 33.1 g/dl (32.0-36.0); MEAN CELL VOLUME 94.4 fl (80-96); MEAN PLT VOLUME 10.4 fl (7.5-11.1); MONO % 5.5 % (3.8-10.2); NEUT % 61.2 % (42.8-82.8); PLATELET COUNT 217 K/MM3 (134-434); RBC 4.18 M/mm3 (3.60-5.2); RDW 14.2 % (11.6-15.6); WHITE BLOOD COUNT 8.2 K/mm3 (4.0-10.0)
[2019-06-22 09:37] LABS: ALBUMIN 3.4 g/dl (3.4-5.0); BILIRUBIN,TOTAL 0.5 mg/dL (0.2-1); BLOOD UREA NITROGEN 11.8 mg/dL (7-18); CALCIUM 8.6 mg/dL (8.5-10.1); MAGNESIUM 2.1 mg/dL (1.8-2.4); POTASSIUM 3.8 mmol/L (3.5-5.1); TOT PROT 7.2 g/dl (6.4-8.2)
[2019-06-22] MEDS ORDERED: GOSERELIN ACETATE 3.6 MG IMPLANT SYRINGE SQ ONE (10:00)
[2019-06-22] MEDS ORDERED: LIDOCAINE HCL 1%, 10 MG/ML (20ML VIAL) ID ONE (10:00)
[2019-06-22 16:06] VITALS: BP 117/71; PULSE 90; TEMP 97.7
[2019-06-23 03:07] LABS: LUTEINIZING HORMONE 0.1 mIU/mL (.)
== END 2019-06-22 10:40 | disposition home or self-care (01) ==
LOC: JONCCHEMO 05:38 → J7W 15:38
PROVIDERS: ATTEND Internal Medicine Hematology & Oncology
DX: Z51.11 Encounter for antineoplastic chemotherapy (principal); C50.811 Malignant neoplasm of overlapping sites of right female breast; Z17.0 Estrogen receptor positive status [ER+]
CPT/HCPCS: 36415; 80053; 82670; 83001; 83002; 83735; 85025; 96402; J9202

== ENCOUNTER 2019-11-10 07:04 | Day surgery (SDC) | payer MEDICARE, OTHER ==
[2019-11-10] MEDS ORDERED: GOSERELIN ACETATE 3.6 MG IMPLANT SYRINGE SQ ONE (10:00)
[2019-11-10] MEDS ORDERED: LIDOCAINE HCL 1%, 10 MG/ML (20ML VIAL) ID ONE (10:00)
[2019-11-10 13:44] VITALS: BP 120/70; PULSE 100; TEMP 97.5
[2019-11-10 13:54] LABS: BASO % 0.3 % (0-2.0); EOS % 3.1 % (0-4.5); HEMATOCRIT 41.8 % (32.4-45.2); HEMOGLOBIN 13.8 GM/dL (10.7-15.3); LYMPH % 24.4 % (8-40); MCH 30.9 pg (25.7-33.7); MCHC 33.1 g/dl (32.0-36.0); MEAN CELL VOLUME 93.3 fl (80-96); MONO % 4.8 % (3.8-10.2); NEUT % 67.4 % (42.8-82.8); PLATELET COUNT 236 K/MM3 (134-434); RBC 4.48 M/mm3 (3.60-5.2); RDW 14.2 % (11.6-15.6)
[2019-11-10 14:24] LABS: ALBUMIN 3.8 g/dl (3.4-5.0); BILIRUBIN,DIRECT 0.1 mg/dL (0.0-0.2); BILIRUBIN,TOTAL 0.4 mg/dL (0.2-1); BLOOD UREA NITROGEN 16.7 mg/dL (7-18); CALCIUM 9.7 mg/dL (8.5-10.1); CREATININE 1.1 mg/dL (0.55-1.3); MAGNESIUM 2.4 mg/dL (1.8-2.4); POTASSIUM 4.3 mmol/L (3.5-5.1)
[2019-11-12 15:07] LABS: LUTEINIZING HORMONE < 0.3 mIU/mL (.)
== END 2019-11-10 13:20 | disposition home or self-care (01) ==
LOC: JONCCHEMO 07:04
PROVIDERS: ATTEND Internal Medicine Hematology & Oncology
DX: Z51.11 Encounter for antineoplastic chemotherapy (principal); C50.811 Malignant neoplasm of overlapping sites of right female breast; Z17.0 Estrogen receptor positive status [ER+]
CPT/HCPCS: 36415; 80048; 80076; 82670; 83001; 83002; 83735; 85025; 96402; J9202

== ENCOUNTER 2019-12-07 09:21 | Day surgery (SDC) | payer MEDICARE, OTHER ==
[2019-12-07] MEDS ORDERED: GOSERELIN ACETATE 3.6 MG IMPLANT SYRINGE SQ ONE (10:00)
[2019-12-07 11:01] LABS: BASO % 0.6 % (0-2.0); EOS % 1.7 % (0-4.5); HEMATOCRIT 40.2 % (32.4-45.2); HEMOGLOBIN 13.1 GM/dL (10.7-15.3); LYMPH % 21.3 % (8-40); MCH 30.5 pg (25.7-33.7); MCHC 32.5 g/dl (32.0-36.0); MEAN CELL VOLUME 93.7 fl (80-96); MEAN PLT VOLUME 10.5 fl (7.5-11.1); MONO % 4.3 % (3.8-10.2); NEUT % 72.1 % (42.8-82.8); PLATELET COUNT 249 K/MM3 (134-434); RBC 4.29 M/mm3 (3.60-5.2); RDW 14.4 % (11.6-15.6); WHITE BLOOD COUNT 11.4 K/mm3 (4.0-10.0)
[2019-12-07 11:16] LABS: ALBUMIN 3.6 g/dl (3.4-5.0); BILIRUBIN,TOTAL 1.1 mg/dL (0.2-1); BLOOD UREA NITROGEN 17.9 mg/dL (7-18); CALCIUM 9.6 mg/dL (8.5-10.1); MAGNESIUM 2.3 mg/dL (1.8-2.4); POTASSIUM 4.2 mmol/L (3.5-5.1); TOT PROT 7.7 g/dl (6.4-8.2)
[2019-12-07 14:19] VITALS: BP 118/78; PULSE 108; TEMP 98.4
[2019-12-08 13:11] LABS: FOLLICLE STIMULATING HORMONE 9.4 mIU/mL (.); LUTEINIZING HORMONE < 0.3 mIU/mL (.)
== END 2019-12-07 10:20 | disposition home or self-care (01) ==
LOC: JONCCHEMO 09:21
PROVIDERS: ATTEND Internal Medicine Hematology & Oncology
DX: Z51.11 Encounter for antineoplastic chemotherapy (principal); C50.811 Malignant neoplasm of overlapping sites of right female breast; Z17.0 Estrogen receptor positive status [ER+]
CPT/HCPCS: 36415; 80053; 82306; 82670; 83001; 83002; 83735; 85025; 96402; J9202

== ENCOUNTER 2020-01-04 07:24 | Day surgery (SDC) | payer MEDICARE, OTHER ==
[2020-01-04] MEDS ORDERED: LIDOCAINE HCL 1%, 10 MG/ML (20ML VIAL) ID ONE (10:00)
[2020-01-04] MEDS ORDERED: GOSERELIN ACETATE 3.6 MG IMPLANT SYRINGE SQ ONE (10:00)
[2020-01-04 12:12] LABS: BASO % 0.6 % (0-2.0); EOS % 2.6 % (0-4.5); HEMATOCRIT 40.6 % (32.4-45.2); HEMOGLOBIN 13.1 GM/dL (10.7-15.3); LYMPH % 19.5 % (8-40); MCH 30.3 pg (25.7-33.7); MCHC 32.1 g/dl (32.0-36.0); MEAN CELL VOLUME 94.3 fl (80-96); MEAN PLT VOLUME 10.8 fl (7.5-11.1); MONO % 4.4 % (3.8-10.2); NEUT % 72.9 % (42.8-82.8); PLATELET COUNT 244 K/MM3 (134-434); RBC 4.31 M/mm3 (3.60-5.2); RDW 14.3 % (11.6-15.6); WHITE BLOOD COUNT 11.6 K/mm3 (4.0-10.0)
[2020-01-04 13:02] LABS: ALBUMIN 3.8 g/dl (3.4-5.0); BILIRUBIN,DIRECT 0.1 mg/dL (0.0-0.2); BILIRUBIN,TOTAL 0.3 mg/dL (0.2-1); BLOOD UREA NITROGEN 16.6 mg/dL (7-18); CALCIUM 9.8 mg/dL (8.5-10.1); CREATININE 1.3 mg/dL (0.55-1.3); MAGNESIUM 2.3 mg/dL (1.8-2.4); POTASSIUM 4.6 mmol/L (3.5-5.1); TOT PROT 8.4 g/dl (6.4-8.2)
[2020-01-04 15:12] VITALS: BP 112/58; PULSE 116; TEMP 97.9
[2020-01-05 04:06] LABS: FOLLICLE STIMULATING HORMONE 11.5 mIU/mL (.); LUTEINIZING HORMONE < 0.3 mIU/mL (.)
== END 2020-01-04 12:10 | disposition home or self-care (01) ==
LOC: JONCCHEMO 07:24
PROVIDERS: ATTEND Nurse Practitioner Family
DX: Z51.11 Encounter for antineoplastic chemotherapy (principal); C50.811 Malignant neoplasm of overlapping sites of right female breast; Z17.0 Estrogen receptor positive status [ER+]
CPT/HCPCS: 36415; 80048; 80076; 82670; 83001; 83002; 83735; 85025; 96402; J9202

== ENCOUNTER 2021-07-17 04:34 | Day surgery (SDC) | payer MEDICARE, OTHER ==
[2021-07-13 17:02] VITALS: BMI 27.6
[2021-07-17] MEDS ORDERED: MIDAZOLAM HCL 2 MG/2 ML SINGLE DOSE VIAL IVPUSH ONE ×2 (14:40→14:55)
[2021-07-17 15:48] VITALS: TEMP 98.1
[2021-07-17 17:30] VITALS: BP 129/77; PULSE 92
== END 2021-07-17 17:35 | disposition home or self-care (01) ==
LOC: JRADIR 04:34
PROVIDERS: ATTEND Internal Medicine Hematology & Oncology
PROC: 0PB13ZX Excision of 1 to 2 Ribs, Percutaneous Approach, Diagnostic (ICD-10-PCS; principal; 2021-07-17)
DX: C79.51 Secondary malignant neoplasm of bone (principal); Z85.3 Personal history of malignant neoplasm of breast; Z85.01 Personal history of malignant neoplasm of esophagus
CPT/HCPCS: 20225; 88305-TC; 88311-TC; 88341-TC; 88342-TC

== ENCOUNTER 2021-07-26 15:25 | Inpatient (IN) | payer MEDICARE, OTHER ==
[2021-07-26] MEDS ORDERED: morphine CARPU-JECT 4 MG/1 ML DISP.SYRIN IVPUSH ONE ×2 (16:01→19:50)
[2021-07-26] MEDS ORDERED: SODIUM CHLORIDE 0.9% 500 ML INFUS.BAG IV ONE (16:11)
[2021-07-26] MEDS ORDERED: LIDOCAINE 5% TOPICAL PATCH TP ONE (16:12)
[2021-07-26] MEDS ORDERED: ACETAMINOPHEN 1000 MG/100 ML BAG IVPB ONE ×2 (16:15→19:00)
[2021-07-26] MEDS ORDERED: ACETAMINOPHEN INJECTION 100 ML IVPB ONE (16:29)
[2021-07-26] MEDS ORDERED: LIDOCAINE 5% TOPICAL PATCH ONE (16:29)
[2021-07-26 16:55] LABS: BASO % 0.9 % (0-2.0); HEMATOCRIT 37.7 % (32.4-45.2); HEMOGLOBIN 12.2 GM/dL (10.7-15.3); LYMPH % 11.7 % (8-40); MCH 30.1 pg (25.7-33.7); MCHC 32.4 g/dl (32.0-36.0); MEAN CELL VOLUME 92.8 fl (80-96); MEAN PLT VOLUME 8.6 fl (7.5-11.1); MONO % 4.5 % (3.8-10.2); NEUT % 81.9 % (42.8-82.8); PLATELET COUNT 468 10^3/uL (134-434); RBC 4.06 M/mm3 (3.60-5.2); RDW 15.9 % (11.6-15.6); WHITE BLOOD COUNT 9.2 K/mm3 (4.0-10.0)
[2021-07-26 17:16] LABS: ALBUMIN 2.8 g/dl (3.4-5.0); CALCIUM 9.7 mg/dL (8.5-10.1)
[2021-07-26 17:17] LABS: MAGNESIUM 2.1 mg/dL (1.8-2.4)
[2021-07-26 17:19] LABS: CREATININE 0.8 mg/dL (0.55-1.3)
[2021-07-26 17:21] LABS: BILIRUBIN,TOTAL 0.4 mg/dL (0.2-1); TOT PROT 7.1 g/dl (6.4-8.2)
[2021-07-26 17:28] LABS: INR 1.13 (0.83-1.09)
[2021-07-26 17:31] LABS: ACTIVATED PTT 27.6 SECONDS (25.2-36.5)
[2021-07-26] MEDS ORDERED: LACTATED RINGERS SOLUTION 1000 ML INFUS.BAG IV ONE (19:50)
[2021-07-26] MEDS ORDERED: morphine SULFATE 4 MG/ML VIAL ONE (19:53)
[2021-07-26] MEDS ORDERED: morphine SULFATE 4 MG/ML VIAL IVPUSH PRN (23:00)
[2021-07-26] MEDS ORDERED: ACETAMINOPHEN 1000 MG/100 ML BAG IVPB PRN (23:02)
[2021-07-26] MEDS ORDERED: SODIUM CHLORIDE 1,000 ML IV SCH (23:15)
[2021-07-27] MEDS: LIDOCAINE PATCH REMOVAL MC SCH ×2 (00:28→21:06)
[2021-07-27 03:18] VITALS: BMI 26.7
[2021-07-27] MEDS ORDERED: SODIUM CHLORIDE 1,000 ML IV SCH (04:45)
[2021-07-27] MEDS ORDERED: DIVALPROEX SODIUM 125 MG TABLET E.C. PO SCH (07:00)
[2021-07-27 08:20] LABS: HEMATOCRIT 35.8 % (32.4-45.2); HEMOGLOBIN 11.5 GM/dL (10.7-15.3); MCH 29.8 pg (25.7-33.7); MEAN CELL VOLUME 93.1 fl (80-96); MEAN PLT VOLUME 8.7 fl (7.5-11.1); PLATELET COUNT 429 10^3/uL (134-434); RBC 3.85 M/mm3 (3.60-5.2); RDW 16.3 % (11.6-15.6); WHITE BLOOD COUNT 6.7 K/mm3 (4.0-10.0)
[2021-07-27 08:40] LABS: ALBUMIN 2.3 g/dl (3.4-5.0); CALCIUM 8.7 mg/dL (8.5-10.1)
[2021-07-27 08:41] LABS: BLOOD UREA NITROGEN 7.8 mg/dL (7-18)
[2021-07-27 08:42] LABS: MAGNESIUM 1.9 mg/dL (1.8-2.4)
[2021-07-27 08:43] LABS: PHOSPHOROUS 3.7 mg/dL (2.5-4.9)
[2021-07-27 08:44] LABS: BILIRUBIN,TOTAL 0.4 mg/dL (0.2-1); CREATININE 0.5 mg/dL (0.55-1.3); TOT PROT 6.1 g/dl (6.4-8.2)
[2021-07-27] MEDS: BENZTROPINE MESYLATE 1 MG TABLET PO SCH ×2 (09:55→20:59)
[2021-07-27] MEDS ORDERED: ENOXAPARIN NA (PORCINE) 40 MG/0.4 ML DISP.SYRIN SQ SCH (10:00)
[2021-07-27] MEDS ORDERED: PANTOPRAZOLE 40 MG TABLET PO SCH (10:00)
[2021-07-27] MEDS ORDERED: ANASTROZOLE 1 MG TABLET PO SCH (10:00)
[2021-07-27] MEDS ORDERED: VITAMIN B COMP W-C 1 EA TABLET (NEPHRO-VITE) PO SCH (10:00)
[2021-07-27] MEDS ORDERED: POLYETHYLENE GLYCOL (HEALTHYLAX) 3350 17 GM PACKET PO SCH (10:00)
[2021-07-27] MEDS ORDERED: [UNRECOGNIZED DRUG - OTHER] PO PRN (11:23)
[2021-07-27] MEDS ORDERED: ACETAMINOPHEN PO PRN (11:23)
[2021-07-27] MEDS ORDERED: CODEINE PO PRN (11:23)
[2021-07-27] MEDS ORDERED: INSULIN (NOVOLOG) ASPART 100 UNITS/ML 10ML VIAL ONE (12:06)
[2021-07-27] MEDS: ACETAMINOPHEN 325 MG TABLET (FP) PO SCH ×2 (12:12→17:29)
[2021-07-27] MEDS: DEXAMETHASONE SOD PHOSPHATE 4 MG/1 ML VIAL IVPB SCH ×2 (12:12→17:30)
[2021-07-27] MEDS: oxyCODONE HCL 5 MG TABLET PO SCH ×2 (12:13→17:29)
[2021-07-27] MEDS: POLYETHYLENE GLYCOL (HEALTHYLAX) 3350 17 GM PACKET PO SCH ×2 (14:02→21:02)
[2021-07-27 15:14] VITALS: BP 134/93; PULSE 95; TEMP 98.2
[2021-07-27] MEDS ORDERED: METOPROLOL TARTRATE 25 MG TABLET (FP) PO SCH (22:00)
[2021-07-27] MEDS ORDERED: ATORVASTATIN CA 20 MG TABLET (FP) PO SCH (22:00)
[2021-07-27] MEDS ORDERED: DIVALPROEX SODIUM 500 MG TABLET E.C. PO SCH (22:00)
[2021-07-27] MEDS ORDERED: cloZAPine 100 MG TABLET PO SCH (22:00)
[2021-07-28] MEDS ORDERED: CALCIUM (OYSTER SHELL) 500 MG TABLET (FP) PO SCH (10:00)
== END 2021-07-27 22:30 | disposition short-term general hospital (02) | DRG 375 ==
LOC: JER 15:25 → JERBED 19:54 → J7W 07-27 02:58
PROVIDERS: ADMIT Internal Medicine; ATTEND Internal Medicine
DX: C78.89 Secondary malignant neoplasm of other digestive organs (principal); C79.51 Secondary malignant neoplasm of bone; E46 Unspecified protein-calorie malnutrition; T85.528A Displacement of other gastrointestinal prosthetic devices, implants and grafts, initial encounter; M84.58XA Pathological fracture in neoplastic disease, other specified site, initial encounter for fracture; R13.10 Dysphagia, unspecified; C50.919 Malignant neoplasm of unspecified site of unspecified female breast; R62.7 Adult failure to thrive; F31.9 Bipolar disorder, unspecified; Z68.26 Body mass index [BMI] 26.0-26.9, adult; E78.5 Hyperlipidemia, unspecified; K21.9 Gastro-esophageal reflux disease without esophagitis; K44.9 Diaphragmatic hernia without obstruction or gangrene; Y84.8 Other medical procedures as the cause of abnormal reaction of the patient, or of later complication, without mention of misadventure at the time of the procedure
CPT/HCPCS: 36415; 71045-TC-FY; 72125-TC; 72141-TC; 74176-TC; 80053; 83735; 84100; 84484; 85025; 85027; 85610; 85730; 93005; 93010; 93308; 99291; C9803-CS; U0003; U0005